=== PATIENT | female | born 1975 | race Caucasian/White ===

== ENCOUNTER 2017-11-10 09:16 | Emergency (ER) | payer BC ==
[2017-11-10 09:32] VITALS: BP 142/73
[2017-11-10] MEDS ORDERED: KETOROLAC TROMETHAMINE INJ/PF 30 MG/1 ML SDV IV ONE (09:37)
[2017-11-10] MEDS ORDERED: ONDANSETRON HCL INJ/PF 4 MG/2 ML SDV IV ONE (09:37)
[2017-11-10] MEDS ORDERED: NORMAL SALINE 1000 ML 1,000 ML IV ONE (09:38)
--- NOTE | 2017-11-10 09:39 | ER Document Report ---
ED General - General Chief Complaint: Abdominal Pain Stated Complaint: STOMACH PAIN Time Seen by Provider: 11/10/17 09:31 Notes: Sudden onset this morning of left upper quadrant abdominal pain radiating to the left flank and left lower quadrant. Nausea and vomiting. Patient states this is a worst pain of her life. Has had gastric bypass surgery and cholecystectomy in the past. Does not think she is . Had to call the ambulance because the pain was severe. Had 2 shots of fentanyl in route but still in severe pain. - Related Data Allergies/Adverse Reactions: No Known Allergies Allergy (Unverified 11/10/17 09:21) Past Medical History - General Information source: Patient - Social History Smoking Status: Never Smoker Chew tobacco use (# tins/day): No Frequency of alcohol use: None Drug Abuse: None Lives with: Family Family History: Reviewed & Not Pertinent Patient has suicidal ideation: No Patient has homicidal ideation: No Renal/ Medical History: Denies: Hx Peritoneal Dialysis Surgical Hx: Other - Gastric bypass, cholecystectomy Review of Systems - Review of Systems Notes: Constitutional: denies: Chills, Diaphoresis, Fever, Malaise, Weakness EENT: denies: Eye discharge, Blurred vision, Tearing, Double vision, Nose congestion, Nose discharge, Throat swelling, Mouth pain Cardiovascular: denies: Palpitations, Heart racing, Orthopnea, Dyspnea, Chest pain Respiratory: denies: Cough, Hurts to breathe, Wheezing, Shortness of breath Gastrointestinal: Severe left upper quadrant left lower quadrant abdominal pain with nausea and vomiting. No black tarry stools. No hematemesis Genitourinary: denies: Burning, Dysuria, Discharge, Frequency,. Denies any hematuria but is having some left flank pain at this time Musculoskeletal: denies: Joint pain, Joint swelling, Muscle pain, Muscle stiffness. Consistent with left-sided back pain Hematologic/Lymphatic: denies: Anemia, Easy bleeding, Easy bruising, Blood clots Neurological/Psychological: denies: Confusion, Dementia, Depression, Loss of consciousness Skin: No lesions, no masses, no skin breakdown, no abscesses Physical Exam - Vital signs Vitals: Temp Pulse Resp BP Pulse Ox 97.6 F 46 L 20 142/73 H 100 11/10/17 09:30 11/10/17 09:30 11/10/17 09:30 11/10/17 09:30 11/10/17 09:30 Interpretation: Normal - General General appearance: Appears well, Alert In distress: Moderate - Agitation and distress due to severe pain - HEENT Head: Normocephalic, Atraumatic Eyes: Normal Pupils: PERRL - Respiratory Respiratory status: No respiratory distress Chest status: Nontender Breath sounds: Normal Chest palpation: Normal - Cardiovascular Rhythm: Regular Heart sounds: Normal auscultation Murmur: No - Abdominal Inspection: Normal Distension: No distension Bowel sounds: Normal Tenderness: Tender - Left lower quadrant abdominal pain, left upper quadrant abdominal pain. No: Bone's sign, Guarding, Rebound Organomegaly: No organomegaly - Back Back: Normal, Nontender - Extremities General upper extremity: Normal inspection, Nontender, Normal color, Normal ROM , Normal temperature General lower extremity: Normal inspection, Nontender, Normal color, Normal ROM , Normal temperature, Normal weight bearing. No: Ron's sign - Neurological Neuro grossly intact: Yes Cognition: Normal Orientation: AAOx4 Mariaa Coma Scale Eye Opening: Spontaneous Mariaa Coma Scale Verbal: Oriented Mariaa Coma Scale Motor: Obeys Commands Mariaa Coma Scale Total: 15 Speech: Normal Motor strength normal: LUE, RUE, LLE, RLE Sensory: Normal - Psychological Associated symptoms: Normal affect, Normal mood - Skin Skin Temperature: Warm Skin Moisture: Dry Skin Color: Normal Course - Re-evaluation Re-evalutation: 11/10/17 11:10 Laboratory 11/10/17 11/10/17 11/10/17 10:10 10:27 10:27 WBC 9.8 RBC 4.63 Hgb 14.0 Hct 41.7 MCV 90 MCH 30.2 MCHC 33.5 RDW 12.8 Plt Count 250 Seg Neutrophils % 82.1 H Lymphocytes % 12.3 L Monocytes % 5.0 Eosinophils % 0.2 Basophils % 0.4 Absolute Neutrophils 8.1 Absolute Lymphocytes 1.2 Absolute Monocytes 0.5 Absolute Eosinophils 0.0 Absolute Basophils 0.0 Sodium 145.3 H Potassium 3.7 Chloride 111 H Carbon Dioxide 23 Anion Gap 11 BUN 13 Creatinine 0.84 Est GFR ( Amer) > 60 Est GFR (Non-Af Amer) > 60 Glucose 130 H Calcium 9.2 Total Bilirubin 0.7 Direct Bilirubin 0.2 Neonat Total Bilirubin Not Reportable Neonat Direct Bilirubin Not Reportable Neonat Indirect Bili Not Reportable AST 24 ALT 32 Alkaline Phosphatase 79 Total Protein 6.7 Albumin 4.1 Urine Color YELLOW Urine Appearance TURBID Urine pH 8.0 Ur Specific [place] 1.018 Urine Protein 30 H Urine Glucose (UA) NEGATIVE Urine Ketones 20 H Urine Blood LARGE H Urine Nitrite NEGATIVE Urine Bilirubin NEGATIVE Urine Urobilinogen 2.0 H Ur Leukocyte Esterase TRACE H Urine WBC (Auto) 32 Urine RBC (Auto) >182 Squamous Epi Cells Auto 6 Amorphous Sediment Auto 1+ Urine Ascorbic Acid NEGATIVE Abdomen/Pelvis CT 11/10/17 09:37 IMPRESSION: 2 mm calculus in the distal left ureter, causing moderate left hydronephrosis and hydroureter. Since pain is mostly gone at this time. She has a 2 mm calculus in the distal left ureter. Will DC at this time. Will culture urine at this time as well. - Vital Signs Vital signs: Temp Pulse Resp BP Pulse Ox 97.6 F 46 L 20 142/73 H 100 11/10/17 09:30 11/10/17 09:30 11/10/17 09:30 11/10/17 09:30 11/10/17 09:30 - Laboratory Result Diagrams: 11/10/17 10:27 11/10/17 10:27 Laboratory results interpreted by me: 11/10/17 11/10/17 11/10/17 10:10 10:27 10:27 Seg Neutrophils % 82.1 H Lymphocytes % 12.3 L Sodium 145.3 H Chloride 111 H Glucose 130 H Urine Protein 30 H Urine Ketones 20 H Urine Blood LARGE H Urine Urobilinogen 2.0 H Ur Leukocyte Esterase TRACE H Discharge - Discharge Clinical Impression: Ureterolithiasis Condition: Good Disposition: HOME, SELF-CARE Instructions: Kidney Stone ([facility]) Prescriptions: Nitrofurantoin/Nitrofuran Mac [Macrobid 100 mg Capsule] 1 tab PO BID 7 Days #14 capsule Oxycodone HCl/Acetaminophen [Percocet 5-325 mg Tablet] 1 - 2 tab PO Q4H PRN #15 tablet PRN Reason: Tamsulosin HCl [Flomax 0.4 mg Cap.sr] 0.4 mg PO DAILY #7 cap.sr.24h Referrals: CHANDU KRUGER MD [EMERITUS] - Follow up as needed
--- NOTE | 2017-11-10 10:19 | RADIOLOGY REPORT (SQ) ---
EXAM DESCRIPTION: CT ABD/PELVIS NO ORAL OR IV COMPLETED DATE/TIME: 11/10/2017 10:06 am REASON FOR STUDY: left abd pain COMPARISON: None. TECHNIQUE: CT scan of the abdomen and pelvis performed without intravenous or oral contrast. Images reviewed with lung, soft tissue, and bone windows. Reconstructed coronal and sagittal MPR images revi ewed. All images stored on PACS. All CT scanners at this facility use dose modulation, iterative reconstruction, and/or weight based d osing when appropriate to reduce radiation dose to as low as reasonably achievable (ALARA). [facility]: Dose Right [facility]: CareDose [facility]: Dose Right [facility]: Teradose 4D [facility]: Smart Po[employer] Apps RADIATION DOSE: CT Rad equipment meets quality standard of care and radiation dose reduction techniq ues were employed. CTDIvol: 8.3 mGy. DLP: 459 mGy-cm.mGy. LIMITATIONS: None. FINDINGS: On axial image 76, and coronal image 40, a 2 mm stone is present in the distal left ureter causing moderate left hydronephrosis and hydroureter. No other left-sided urinary stones. No left renal cysts or gross masses on non contrasted CT. No ot her left renal or ureteral stones. LOWER CHEST: Tiny hiatal hernia. Lung bases are occluded. NON-CONTRASTED LIVER, SPLEEN, ADRENALS: Evaluation limited by lack of IV contrast. No identified sign ificant masses. PANCREAS: No masses. No peripancreatic inflammatory changes. GALLBLADDER: Surgically absent RIGHT KIDNEY AND URETER: No suspicious masses. Assessment limited by lack of IV contrast. No signif icant calcifications. No hydronephrosis or hydroureter. LEFT KIDNEY AND URETER: As above AORTA AND RETROPERITONEUM: No aneurysm. No retroperitoneal masses or adenopathy. BOWEL AND PERITONEAL CAVITY: No free intraperitoneal air. No CT evidence of bowel obstruction. Post gastric bypass. APPENDIX: Normal. PELVIS, BLADDER, AND ABDOMINAL WALL:No abnormal masses. No free fluid. Bladder normal. Normal size f emale pelvic organs are present. BONES: No significant findings. OTHER: No other significant finding. IMPRESSION: 2 mm calculus in the distal left ureter, causing moderate left hydronephrosis and hydrou reter. COMMENT: Quality ID # [id number]: Final reports with documentation of one or more dose reduction techniques (e.g., Automated exposure control, adjustment of the mA and/or kV according to patient size, use of iterative reconstruction technique) TECHNICAL DOCUMENTATION: JOB ID: [id number]- All Rights Reserved Reading location - IP/workstation name: [email or web address]
[2017-11-10 10:38] LABS: ABSOLUTE LYMPHOCYTES (AUTO) 1.2 10^3/uL (0.5-4.7); ABSOLUTE MONOCYTES (AUTO) 0.5 10^3/uL (0.1-1.4); ABSOLUTE NEUT (AUTO) 8.1 10^3/uL (1.7-8.2); BASOPHILS % (AUTO) 0.4 % (0-2); EOSINOPHILS % (AUTO) 0.2 % (0-6); HEMATOCRIT 41.7 % (36.0-47.0); LYMPHOCYTES % (AUTO) 12.3 % (13-45); MEAN CORPUSCULAR HEMOGLOBIN 30.2 pg (27.0-33.4); MEAN CORPUSCULAR HGB CONC 33.5 g/dL (32.0-36.0); MEAN CORPUSCULAR VOLUME 90 fl (80-97); PLATELET COUNT 250 10^3/uL (150-450); RED BLOOD COUNT 4.63 10^6/uL (3.72-5.28); RED CELL DISTRIBUTION WIDTH 12.8 % (11.5-14.0); SEGMENTED NEUTROPHILS % (AUTO) 82.1 % (42-78); TOTAL CELLS COUNTED % (AUTO) 100 %; WHITE BLOOD COUNT 9.8 10^3/uL (4.0-10.5)
[2017-11-10 10:43] LABS: AMORPHOUS SEDIMENT,URINE 1+ /HPF; APPEARANCE,URINE TURBID; BILIRUBIN,URINE NEGATIVE (NEGATIVE); COLOR,URINE YELLOW; GLUCOSE, URINE NEGATIVE (NEGATIVE); KETONES,URINE 20 mg/dL (NEGATIVE); LEUKOCYTE ESTERASE,URINE TRACE (NEGATIVE); NITRITE,URINE NEGATIVE (NEGATIVE); PROTEIN,URINE 30 mg/dL (NEGATIVE); URINE SPECIFIC GRAVITY 1.018
[2017-11-10] MEDS ORDERED: HYDROMORPHONE HCL INJ/PF 2 MG/ML AMPULE IV PRN (10:47)
[2017-11-10 10:57] LABS: ALANINE AMINOTRANSFERASE 32 U/L (9-52); ALBUMIN 4.1 g/dL (3.5-5.0); ALKALINE PHOSPHATASE 79 U/L (38-126); ANION GAP 11 (5-19); ASPARTATE AMINO TRANSFERASE 24 U/L (14-36); BILIRUBIN,DIRECT 0.2 mg/dL (0.0-0.4); BILIRUBIN,TOTAL 0.7 mg/dL (0.2-1.3); BLOOD UREA NITROGEN 13 mg/dL (7-20); CALCIUM 9.2 mg/dL (8.4-10.2); CARBON DIOXIDE 23 mmol/L (22-30); CHLORIDE 111 mmol/L (98-107); GLUCOSE 130 mg/dL (75-110); POTASSIUM 3.7 mmol/L (3.6-5.0); SODIUM 145.3 mmol/L (137-145); TOTAL PROTEIN 6.7 g/dL (6.3-8.2)
== END 2017-11-10 11:22 | disposition home or self-care (01) ==
LOC: ER 09:16
DX: N20.1 Calculus of ureter (principal); R10.12 Left upper quadrant pain; R11.2 Nausea with vomiting, unspecified; Z98.84 Bariatric surgery status; Z90.49 Acquired absence of other specified parts of digestive tract
CPT/HCPCS: 99284; 96361; 96374; 96375; 36415; 85025; 80053; 81001; 74176; J1885; J1170; J2405; J7030